=== PATIENT | female | born 1980 | race American Indian/Alaskan Native ===

== ENCOUNTER 2018-02-27 14:50 | Emergency (ER) | payer SELFPAY ==
[2018-02-27 15:03] VITALS: BP 130/75
--- NOTE | 2018-02-27 16:38 | Emergency Department Report ---
ED Abdominal Pain HPI - General Chief Complaint: Abdominal Pain Stated Complaint: LUMP/RT STOMACH PAIN/LT SHOULDER Time Seen by Provider: 02/27/18 15:43 Source: patient Mode of arrival: Ambulatory Limitations: No Limitations - History of Present Illness Initial Comments: 38-year-old -Luxembour[place] female presents to emergency department complaining of some unknown swelling to her right upper abdominal region, which was spontaneous and emergence and resolution to her knowledge. She reports no pain, nausea, fever, chills, sweats, chest pain, palpitations, hemoptysis, hematemesis, weakness, fatigue, easy bruising, excessive alcohol consumption, cough. She has a previous history of having an unknown benign mass removed from her left lower abdominal region several years ago and was on clinical evaluating what her symptoms may mean concerned when she saw liver disease and kidney disease. She reports taken no medication. 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 MD Complaint: abdominal pain Location: RUQ Radiation: RUQ Severity scale (0 -10): 4 Quality: sharp Consistency: constant, intermittent Improves With: nothing Worsens With: nothing Associated Symptoms: denies: vomiting, diarrhea, constipation, dysuria, hematemesis, melena, hematuria, anorexia - Related Data Previous Rx's Medication Instructions Recorded Last Taken Type Meloxicam 15 mg PO DAILY #7 tablet 02/27/18 Unknown Rx Allergies Allergy/AdvReac Type Severity Reaction Status Date / Time red dye AdvReac Unknown Unverified 04/21/14 14:33 ED Review of Systems ROS: Stated complaint: LUMP/RT STOMACH PAIN/LT SHOULDER Other details as noted in HPI Constitutional: denies: chills, fever Eyes: denies: eye pain, eye discharge, vision change ENT: denies: ear pain, throat pain Respiratory: denies: cough, shortness of breath, wheezing Cardiovascular: denies: chest pain, palpitations Endocrine: no symptoms reported Gastrointestinal: denies: abdominal pain, nausea, diarrhea Genitourinary: denies: urgency, dysuria, discharge Musculoskeletal: denies: back pain, joint swelling, arthralgia Skin: denies: as per HPI, rash, lesions Neurological: denies: headache, weakness, paresthesias Psychiatric: denies: anxiety, depression Hematological/Lymphatic: denies: easy bleeding, easy bruising ED Past Medical Hx - Past Medical History Previous Medical History?: Yes Additional medical history: polycystic ovarion syndrome - Surgical History Past Surgical History?: No - Social History Smoking Status: Never Smoker Substance Use Type: Alcohol - Medications Home Medications: Home Medications Medication Instructions Recorded Confirmed Last Taken Type Meloxicam 15 mg PO DAILY #7 tablet 02/27/18 Unknown Rx ED Physical Exam - General Limitations: No Limitations General appearance: alert, in no apparent distress - Head Head exam: Present: atraumatic, normocephalic - Eye Eye exam: Present: normal appearance - ENT ENT exam: Present: mucous membranes moist - Neck Neck exam: Present: normal inspection - Respiratory Respiratory exam: Present: normal lung sounds bilaterally, chest wall tenderness (mild tenderness along the right rib cage at the edge chondral region around the right upper quadrant. No obvious swelling.). Absent: respiratory distress - Cardiovascular Cardiovascular Exam: Present: regular rate, normal rhythm. Absent: systolic murmur, diastolic murmur, rubs, gallop - GI/Abdominal GI/Abdominal exam: Present: soft, normal bowel sounds, other (joao sign, no Freire Thompson, no Rovsing, no Keating sign, no McBurney's tenderness, no organomegaly, no [place], no easy bruising, no petechiae, no distention, abdomen is soft. Bowel sounds are positive. No CVA tenderness) - Extremities Exam Extremities exam: Present: normal inspection - Back Exam Back exam: Present: normal inspection - Neurological Exam Neurological exam: Present: alert, oriented X3 - Psychiatric Psychiatric exam: Present: normal affect, normal mood - Skin Skin exam: Present: warm, dry, intact, normal color. Absent: rash ED Course Vital Signs 02/27/18 02/27/18 02/27/18 14:58 16:43 16:50 Temperature 98.8 F 98.0 F Pulse Rate 77 77 Respiratory 16 16 19 Rate Blood Pressure 130/75 Blood Pressure 130/75 [Left] O2 Sat by Pulse 96 99 100 Oximetry ED Medical Decision Making - Medical Decision Making A long discussion with Ms. Amber Waters about her current symptomology. Lamination revealed no symptoms to the actual abdominal region and a clear pulmonary examination with the exception of having tenderness upon her right rib cartilage region along the lower border. There is no crepitus appreciated. And further evaluation and repeat production of pain with palpation and range of motion she acknowledges that this may be secondary to a special needs kids leaning up against the area of her body was also given some discomfort. We discussed following up with a primary care provider for complete evaluation was no obvious emergent condition and process. Critical care attestation.: If time is entered above; I have spent that time in minutes in the direct care of this critically ill patient, excluding procedure time. ED Disposition Clinical Impression: Rib pain on right side Disposition: DC-01 TO HOME OR SELFCARE Is pt being admited?: No Does the pt Need Aspirin: No Condition: Stable Instructions: Chest Pain (ED), Abdominal Pain (ED) Prescriptions: Meloxicam 15 mg PO DAILY #7 tablet Referrals: [facility] [Provider Group] - 3-5 Days
== END 2018-02-27 16:50 | disposition home or self-care (01) ==
LOC: ED 14:50
DX: R07.81 Pleurodynia (principal); Z91.09 Other allergy status, other than to drugs and biological substances
CPT/HCPCS: 99282